=== PATIENT | male | born 1955 | race Caucasian/White ===

== ENCOUNTER 2016-05-13 10:09 | Emergency (ER) | payer OTHER ==
[2016-05-13 10:25] VITALS: BP 105/71; PULSE 62; RESP 18; TEMP 97.8; O2SAT 98; BMI 21.7
[2016-05-13] MEDS ORDERED: Naproxen 550 mg Tab PO STA (11:00)
[2016-05-13] MEDS ORDERED: Naproxen 550 mg Tab PO ONE (11:07)
--- NOTE | 2016-05-13 11:54 | C.PDOC ---
History Of Present Illness 61 year old male presents to the ED with complaints of left wrist pain that began approximately three months ago. 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 Patient denies any direct trauma, fever, or rash. Time Seen by Provider: 05/13/16 10:27 Chief Complaint (Nursing): Upper Extremity Problem/Injury History Per: Patient History/Exam Limitations: no limitations Onset/Duration Of Symptoms: Persistent (for three months) Quality: "Pain" Exacerbating Factor(s): Strenuous Use Of Affected Area (when tearing open boxes ) Past Medical History Reviewed: Historical Data, Nursing Documentation, Vital Signs Vital Signs: Last Vital Signs Temp 97.8 F 05/13/16 10:25 Pulse 62 05/13/16 10:25 Resp 18 05/13/16 10:25 BP 105/71 05/13/16 10:25 Pulse Ox 98 05/13/16 11:56 Family History: States: Unknown Family Hx - Social History Hx Alcohol Use: No Hx Substance Use: No - Immunization History Hx Tetanus Toxoid Vaccination: No Hx Influenza Vaccination: No Hx Pneumococcal Vaccination: No Review Of Systems Constitutional: Negative for: Fever, Chills Gastrointestinal: Negative for: Nausea, Vomiting, Abdominal Pain, Diarrhea Musculoskeletal: Positive for: Hand Pain (left wrist primarily at lateral aspect ) Skin: Negative for: Rash Physical Exam - Physical Exam Appears: Non-toxic, No Acute Distress, Other (patient appears comfortable ) Skin: Warm, Dry Cardiovascular: Rhythm Regular, No Murmur Respiratory: No Accessory Muscle Use, No Rales, No Rhonchi, No Stridor, No Wheezing Gastrointestinal/Abdominal: Soft, No Tenderness, No Distention, No Guarding, No Rebound Extremity: Normal ROM (in wrists and digits), No Tenderness (left wrist non- tender to palpation ), Other (positive phalen's test ) Pulses: Left Radial: Normal, Right Radial: Normal ED Course And Treatment O2 Sat by Pulse Oximetry: 98 (room air ) Progress Note: Patient had a removal splint placed on left wrist and told to follow up with left hand surgery. Disposition Counseled Patient/Family Regarding: Diagnosis, Need For Followup, Rx Given - Disposition Referrals: Natividad Starr MD [Staff Provider] - Disposition: HOME/ ROUTINE Disposition Time: 11:50 Condition: GOOD Additional Instructions: FOLLOW UP HAND SURGEON WITHIN 1 WEEK USE MEDICATION AND SPLINT RETURN TO ER IF SYMPTOMS WORSEN Prescriptions: Naproxen [Naprosyn Tab] 375 mg PO BID PRN #20 tab PRN Reason: pain Instructions: Carpal Tunnel Syndrome (ED) Print Language: SERBIAN - POA Present On Arrival: None - Clinical Impression Clinical Impression: Left carpal tunnel syndrome
--- NOTE | 2016-05-13 16:34 | RAD ---
PROCEDURE: Left Wrist Radiographs. HISTORY: LEFT WRIST PAIN COMPARISON: None. FINDINGS: BONES: Suspect impacted, intra-articular fracture distal radius. This is a subtle fracture there is loss of the normal volar angulation of the distal radial articular surface and some discontinuity can be seen in the lateral projection. There is bowing of the pronator fat pad. JOINTS: As above. Normal carpal alignment is maintained. SOFT TISSUES: Normal. OTHER FINDINGS: None. IMPRESSION: Probable impacted nondisplaced intra-articular distal radial fracture.
== END 2016-05-13 12:18 | disposition home or self-care (01) ==
LOC: C.ER 10:09
DX: G56.02 Carpal tunnel syndrome, left upper limb (principal)